=== PATIENT | male | born 2000 | race Caucasian/White ===

== ENCOUNTER 2021-09-28 23:05 | Emergency (ER) | payer SELFPAY ==
--- NOTE | 2021-09-29 00:22 | ER ---
Nurse's Notes [facility] Name: Fili Padilla Age: 21 yrs Sex: Male : 2000 Arrival Date: 09/28/2021 Time: 23:10 Bed 19 Private MD: Diagnosis: Low back pain;Abrasion of left upper arm Presentation: 09/29 00:06 Chief complaint: Patient states: "About a month ago I had an infection on my arm and vc1 pretty sure it was staph and I never took antibiotics for it, now over the last month I keep getting infections everywhere, my stomach hurts, my kidneys hurt and now my throat hurts. I am afraid the infection spread to my blood and that's why I keep getting sick.". Coronavirus screen: Vaccine status: Patient reports being unvaccinated. muscle pain, sore throat, Client presents with at least one sign or symptom that may indicate coronavirus-19. Standard/surgical mask placed on the client. Provider contacted for isolation considerations. Ebola Screen: No symptoms or risks identified at this time. Initial Sepsis Screen: Does the patient meet any 2 criteria? No. Patient's initial sepsis screen is negative. Does the patient have a suspected source of infection? No. Patient's initial sepsis screen is negative. Risk Assessment: Do you want to hurt yourself or someone else? Patient reports no desire to harm self or others. Onset of symptoms is unknown. 00:06 Method Of Arrival: Ambulatory vc1 00:06 Acuity: SHRUTHI 3 vc1 Historical: - Allergies: 00:10 No Known Allergies; vc1 - Home Meds: 00:10 None [Active]; vc1 - PMHx: 00:10 None; vc1 - PSHx: 00:10 None; vc1 - Immunization history:: Adult Immunizations unknown, Client reports having NOT received the Covid vaccine. - Social history:: Smoking status: Patient/guardian denies using tobacco, Stopped _ months ago 1. Screenin:14 Abuse screen: Denies threats or abuse. Nutritional screening: No deficits noted. fu Tuberculosis screening: No symptoms or risk factors identified. Fall Risk None identified. Assessment: 00:15 General: Appears in no apparent distress. Behavior is calm, cooperative, appropriate fu for age. Pain: Complains of pain in lower back pain Pain does not radiate. Pain currently is 3 out of 10 on a pain scale. Neuro: Level of Consciousness is awake, alert, obeys commands, Oriented to person, place, time, situation, Moves all extremities. Gait is steady, Speech is normal, Facial symmetry appears normal. Respiratory: Respiratory effort is even, unlabored, Respiratory pattern is regular. 00:20 Derm: abrasion to left arm noted. fu Vital Signs: 00:06 BP 135 / 77; Pulse 95; Resp 16; Temp 98.4(O); Pulse Ox 99% on R/A; Weight 51.71 kg; vc1 Height 5 ft. 4 in. (162.56 cm); Pain 3/10; 00:06 Body Mass Index 19.57 (51.71 kg, 162.56 cm) vc1 ED Course: 09/28 23:10 Patient arrived in ED. am2 23:28 Griffin Thomas MD is Attending Physician. virgilio 09/29 00:02 Vasquez Barros, RN is Primary Nurse. fu 00:10 Triage completed. vc1 00:10 Arm band placed on right wrist. vc1 00:50 Patient has correct armband on for positive identification. Call light in reach. Pulse fu ox on. NIBP on. 01:09 No provider procedures requiring assistance completed. Patient did not have IV access fu during this emergency room visit. Administered Medications: No medications were administered Medication: 00:45 VIS not applicable for this client. fu Outcome: 00:22 Discharge ordered by . virgilio 01:09 Discharged to home ambulatory. fu 01:09 Condition: unchanged 01:09 Discharge instructions given to patient, Instructed on discharge instructions, follow up and referral plans. Demonstrated understanding of instructions, Prescriptions given X 0 01:10 Patient left the ED. fu Signatures: Griffin Thomas MD MD cha Moreno, Amanda am2 Vasquez Barros, KIRBY ORR Yanely Curran RN RN vc1
--- NOTE | 2021-09-29 00:22 | EDPHYS ---
Physician Documentation [facility] Name: Fili Padilla Age: 21 yrs Sex: Male : 2000 Arrival Date: 09/28/2021 Time: 23:10 Bed 19 Private MD: ED Physician Griffin Thomas HPI: 09/29 00:18 This 21 yrs old Male presents to ER via Ambulatory with complaints of Skin virgilio Problem, Back Pain. 00:18 The patient presents with pain that is acute, with no known mechanism of injury. The virgilio symptoms are located in the left low back and right low back. Onset: The symptoms/episode began/occurred 2 day(s) ago. Historical: - Allergies: 00:10 No Known Allergies; vc1 - Home Meds: 00:10 None [Active]; vc1 - PMHx: 00:10 None; vc1 - PSHx: 00:10 None; vc1 - Immunization history:: Adult Immunizations unknown, Client reports having NOT received the Covid vaccine. - Social history:: Smoking status: Patient/guardian denies using tobacco, Stopped _ months ago 1. ROS: 00:19 Constitutional: Negative for fever, chills, and weight loss, Eyes: Negative for injury, virgilio pain, redness, and discharge, ENT: Negative for injury, pain, and discharge, Neck: Negative for injury, pain, and swelling, Cardiovascular: Negative for chest pain, palpitations, and edema, Respiratory: Negative for shortness of breath, cough, wheezing, and pleuritic chest pain, Abdomen/GI: Negative for abdominal pain, nausea, vomiting, diarrhea, and constipation, Back: Negative for injury and pain, : Negative for injury, bleeding, discharge, and swelling, MS/Extremity: Negative for injury and deformity, Neuro: Negative for headache, weakness, numbness, tingling, and seizure, Psych: Negative for depression, anxiety, suicide ideation, homicidal ideation, and hallucinations, Allergy/Immunology: Negative for hives, rash, and allergies, Endocrine: Negative for neck swelling, polydipsia, polyuria, polyphagia, and marked weight changes, Hematologic/Lymphatic: Negative for swollen nodes, abnormal bleeding, and unusual bruising. 00:19 Skin: Positive for abrasion(s). Exam: 00:19 Constitutional: This is a well developed, well nourished patient who is awake, alert, virgilio and in no acute distress. Head/Face: Normocephalic, atraumatic. Eyes: Pupils equal round and reactive to light, extra-ocular motions intact. Lids and lashes normal. Conjunctiva and sclera are non-icteric and not injected. Cornea within normal limits. Periorbital areas with no swelling, redness, or edema. ENT: Nares patent. No nasal discharge, no septal abnormalities noted. Tympanic membranes are normal and external auditory canals are clear. Oropharynx with no redness, swelling, or masses, exudates, or evidence of obstruction, uvula midline. Mucous membranes moist. Neck: Trachea midline, no thyromegaly or masses palpated, and no cervical lymphadenopathy. Supple, full range of motion without nuchal rigidity, or vertebral point tenderness. No Meningismus. Chest/axilla: Normal chest wall appearance and motion. Nontender with no deformity. No lesions are appreciated. Cardiovascular: Regular rate and rhythm with a normal S1 and S2. No gallops, murmurs, or rubs. Normal PMI, no JVD. No pulse deficits. Respiratory: Lungs have equal breath sounds bilaterally, clear to auscultation and percussion. No rales, rhonchi or wheezes noted. No increased work of breathing, no retractions or nasal flaring. Abdomen/GI: Soft, non-tender, with normal bowel sounds. No distension or tympany. No guarding or rebound. No evidence of tenderness throughout. Back: No spinal tenderness. No costovertebral tenderness. Full range of motion. Male : Normal genitalia with no discharge or lesions. Skin: Warm, dry with normal turgor. Normal color with no rashes, no lesions, and no evidence of cellulitis. MS/ Extremity: Pulses equal, no cyanosis. Neurovascular intact. Full, normal range of motion. Neuro: Awake and alert, GCS 15, oriented to person, place, time, and situation. Cranial nerves II-XII grossly intact. Motor strength 5/5 in all extremities. Sensory grossly intact. Cerebellar exam normal. Normal gait. Psych: Awake, alert, with orientation to person, place and time. Behavior, mood, and affect are within normal limits. Vital Signs: 00:06 BP 135 / 77; Pulse 95; Resp 16; Temp 98.4(O); Pulse Ox 99% on R/A; Weight 51.71 kg; vc1 Height 5 ft. 4 in. (162.56 cm); Pain 3/10; 00:06 Body Mass Index 19.57 (51.71 kg, 162.56 cm) vc1 MDM: 09/28 23:28 Patient medically screened. virgilio 09/29 00:19 Differential diagnosis: chronic back pain, Fatigue sprain, Ureterolithiasis. Data ivrgilio reviewed: vital signs, nurses notes, lab test result(s). Data interpreted: phototypesetting equipment monitor: rate is 95 beats/min, rhythm is regular, Pulse oximetry: on room air is 99 %. Counseling: I had a detailed discussion with the patient and/or guardian regarding: the historical points, exam findings, and any diagnostic results supporting the discharge/admit diagnosis, lab results, radiology results. 09/29 00:57 Order name: Urine Dipstick-Ancillary EDMS 09/29 00:23 Order name: Urine Dipstick-Ancillary (obtain specimen); Complete Time: 01:01 virgilio Administered Medications: No medications were administered Disposition Summary: 09/29/21 00:22 Discharge Ordered Location: Home [facility] Problem: new virgilio Symptoms: have improved virgilio Condition: Stable virgilio Diagnosis - Low back pain virgilio - Abrasion of left upper arm virgilio Followup: virgilio - With: Private Physician - When: 2 - 3 days - Reason: Recheck today's complaints, Continuance of care, Re-evaluation by your physician Discharge Instructions: - Discharge Summary Sheet virgilio - Acute Back Pain, Adult virgilio - Musculoskeletal Pain virgilio Forms: - Medication Reconciliation Form virgilio - Thank You Letter virgilio - Antibiotic Education ivrgilio - Prescription Opioid Use virgilio Signatures: Griffin Thomas MD MD cha Calcote, Vanessa, RN RN vc1
[2021-09-29 00:57] LABS: Urine Blood Negative (Negative); Urine Glucose Negative (Negative); Urine Protein Negative (Negative); Urine Specific Gravity >=1.030 (1.005-1.030); Urine pH 5.5 (5.0-7.0)
[2021-09-29 01:16] VITALS: BP 135/77; TEMP 98.4; O2SAT 99
== END 2021-09-29 01:10 | disposition home or self-care (01) ==
LOC: ER 23:05
DX: M54.50 Low back pain, unspecified (principal); S40.812A Abrasion of left upper arm, initial encounter
CPT/HCPCS: 81003; 99283

== ENCOUNTER 2021-10-16 18:01 | Emergency (ER) | payer SELFPAY ==
--- NOTE | 2021-10-16 20:47 | RAD REPORT ---
EXAM DESCRIPTION: US - Abdomen Exam Limited - 10/16/2021 8:19 pm CLINICAL HISTORY: RUQ abdomen pain COMPARISON: No comparisons FINDINGS: The gallbladder demonstrates no gallstones. No pericholecystic fluid or gallbladder wall t hickening. The common bile duct is normal measuring 2 mm. The liver demonstrates no findings of intrahepatic biliary dilatation. IMPRESSION: Unremarkable examination. Negative for cholelithiasis, acute cholecystitis, or biliary ductal dilatation.
[2021-10-16] MEDS ORDERED: NA CHLORIDE 0.9% 1,000 ML ONE (21:01)
[2021-10-16] MEDS ORDERED: ONDANSETRON 4 MG/2 ML VIAL ONE (21:01)
[2021-10-16 21:11] LABS: Urine Blood Trace-lysed (Negative); Urine Glucose Negative (Negative); Urine Protein Negative (Negative); Urine Specific Gravity >=1.030 (1.005-1.030); Urine pH 5.5 (5.0-7.0)
[2021-10-16 21:29] LABS: Absolute Lymphocytes (CBC) 3.1 K/uL (0.7-4.9); Hematocrit 45.5 % (39.6-49.0); Lymphocytes % 39.2 % (15.3-44.8); MCV 88.2 fL (80-100); MPV 8.2 fL (7.6-11.3); RBC Red Blood Cell Count 5.15 M/uL (4.33-5.43)
[2021-10-16 21:31] LABS: Urine Bacteria <20 /HPF (<20); Urine RBC <5 /HPF (None Seen)
[2021-10-16 21:51] LABS: Albumin 4.5 g/dL (3.4-5.0); Bilirubin Total 0.4 mg/dL (0.2-1.0); Potassium 3.8 mmol/L (3.5-5.1); Protein, Total 8.2 g/dL (6.4-8.2)
--- NOTE | 2021-10-16 22:04 | EDPHYS ---
Physician Documentation [facility] Name: Fili Padilla Age: 21 yrs Sex: Male : 2000 Arrival Date: 10/16/2021 Time: 18:01 Bed 14 Private MD: ED Physician Bernard Martin HPI: 10/16 19:50 This 21 yrs old Male presents to ER via Ambulatory with complaints of Abdominal Pain. cp 19:50 The patient presents with abdominal pain in the epigastric area. cp 19:50 Onset: The symptoms/episode began/occurred 2 month(s) ago. cp 19:50 The patient presents to the emergency department with vomiting, 1 episode today, cp abdominal pain, of the epigastric area, described as achy. Possible causes: unknown. The symptoms do not radiate. Associated signs and symptoms: Pertinent negatives: anorexia, constipation, diarrhea, fever, GI bleeding. Historical: - Allergies: 18:40 No Known Allergies; hb - PMHx: 18:40 None; hb - PSHx: 18:40 None; hb - Immunization history:: Adult Immunizations up to date. - Social history:: Smoking status: Patient denies any tobacco usage or history of. ROS: 20:00 Constitutional: Negative for body aches, chills, fever, poor PO intake. cp 20:00 Eyes: Negative for injury, pain, redness, and discharge. cp 20:00 ENT: Negative for drainage from ear(s), ear pain, sore throat, difficulty swallowing, difficulty handling secretions. 20:00 Cardiovascular: Negative for chest pain, edema, palpitations. 20:00 Respiratory: Negative for cough, shortness of breath, wheezing. 20:00 Abdomen/GI: Positive for abdominal pain, Negative for vomiting, diarrhea, constipation. 20:00 Back: Negative for pain at rest, pain with movement. 20:00 : Negative for urinary symptoms. 20:00 Neuro: Negative for altered mental status, headache, weakness. 20:00 All other systems are negative. Exam: 20:05 Constitutional: The patient appears in no acute distress, alert, awake, comfortable, cp non-toxic, well developed, well nourished. 20:05 Head/Face: Normocephalic, atraumatic. cp 20:05 Eyes: Periorbital structures: appear normal, Conjunctiva: normal, no exudate, no injection, Sclera: no appreciated abnormality, Lids and lashes: appear normal, bilaterally. 20:05 ENT: External ear(s): are unremarkable, Nose: is normal, Mouth: Lips: moist, Oral mucosa: moist, Posterior pharynx: Airway: no evidence of obstruction, patent. 20:05 Chest/axilla: Inspection: normal, Palpation: is normal, no crepitus, no tenderness. 20:05 Cardiovascular: Rate: normal, Rhythm: regular. 20:05 Respiratory: the patient does not display signs of respiratory distress, Respirations: normal, no use of accessory muscles, no retractions, labored breathing, is not present, Breath sounds: are clear throughout, no decreased breath sounds, no stridor, no wheezing. 20:05 Abdomen/GI: Inspection: abdomen appears normal, Bowel sounds: active, all quadrants, Palpation: soft, in all quadrants, mild abdominal tenderness, in the epigastric area, rebound tenderness, is not appreciated, voluntary guarding, is not appreciated, involuntary guarding, is not appreciated. 20:05 Back: CVA tenderness, is absent. 20:05 Skin: no rash present. 20:05 Neuro: Orientation: to person, place \T\ time. Mentation: is normal, Motor: moves all fours, strength is normal, Sensation: is normal, Gait: is steady, at a normal pace, without difficulty. Vital Signs: 18:36 BP 153 / 92; Pulse 108; Resp 16; Temp 98.9; Pulse Ox 100% on R/A; Weight 52.16 kg; hb Height 5 ft. 4 in. (162.56 cm); Pain 3/10; 20:57 BP 113 / 83; Pulse 94; Resp 18; Pulse Ox 100% on R/A; Pain 6/10; ld1 21:38 BP 115 / 86; Pulse 89; Resp 18; Pulse Ox 100% on R/A; ld1 18:36 Body Mass Index 19.74 (52.16 kg, 162.56 cm) hb MDM: 20:00 Differential diagnosis: gastritis, cholecystitis, pancreatitis, appendicitis, cp gastroenteritis, gastroesophageal reflux disease, GI Bleed. 20:36 Patient medically screened. cp 22:00 Data reviewed: vital signs, nurses notes, lab test result(s), radiologic studies, cp ultrasound. 22:00 Counseling: I had a detailed discussion with the patient and/or guardian regarding: the cp historical points, exam findings, and any diagnostic results supporting the discharge/admit diagnosis, lab results, radiology results, the need for outpatient follow up, a family practitioner, to return to the emergency department if symptoms worsen or persist or if there are any questions or concerns that arise at home. Response to treatment: the patient's symptoms have mildly improved after treatment, and as a result, I will discharge patient. Special discussion: Based on the patient's Hx, exam, and Dx evaluation, there is no indication for emergent surgery or inpatient Tx. It is understood by the patient/guardian that if the Sx's persist or worsen they need to return immediately for re-evaluation. 10/16 19:48 Order name: CBC with Diff; Complete Time: 21:59 cp 10/16 19:48 Order name: CMP; Complete Time: 21:59 cp 10/16 21:59 Interpretation: Normal except: AST 10; GLOB 3.7. cp 10/16 19:48 Order name: Lipase; Complete Time: 21:59 cp 10/16 19:48 Order name: Urine Microscopic Only; Complete Time: 21:59 cp 10/16 19:48 Order name: US Abdomen Limited; Complete Time: 21:59 cp 10/16 21:11 Order name: Urine Dipstick-Ancillary; Complete Time: 21:59 EDMS 10/16 19:48 Order name: IV Saline Lock; Complete Time: 21:00 cp 10/16 19:48 Order name: Labs collected and sent; Complete Time: 21:32 cp 10/16 19:48 Order name: Urine Dipstick-Ancillary (obtain specimen); Complete Time: 21:31 cp Administered Medications: 20:59 Drug: NS 0.9% 1000 ml Route: IV; Rate: 1 bolus; Site: right antecubital; ld1 22:18 Follow up: Response: No adverse reaction eh3 21:00 Drug: Zofran (Ondansetron) 4 mg Route: IVP; Site: right antecubital; ld1 22:18 Follow up: Response: No adverse reaction eh3 Disposition: 23:44 Co-signature as Attending Physician, Bernard Martin MD. rn Disposition Summary: 10/16/21 22:03 Discharge Ordered Location: Home cp Problem: new cp Symptoms: have improved cp Condition: Stable cp Diagnosis - Epigastric pain cp Followup: cp - With: Private Physician - When: 2 - 3 days - Reason: Recheck today's complaints Discharge Instructions: - Discharge Summary Sheet cp - Gastritis, Adult cp - Gastroesophageal Reflux Disease, Adult cp - Peptic Ulcer cp Forms: - Medication Reconciliation Form cp - Thank You Letter cp - Antibiotic Education cp - Prescription Opioid Use cp Prescriptions: - Protonix 40 mg Oral Tablet - take 1 tablet by ORAL route once daily; 30 tablet; Refills: 0, Product cp Selection Permitted - Zofran 4 mg Oral Tablet - take 1 tablet by ORAL route every 12 hours As needed; 20 tablet; Refills: 0, cp Product Selection Permitted Signatures: Dispatcher [employer] EDMS Bernard Martin MD MD rn Page, Corey, PA PA cp She Romo RN RN Lissette Stevens RN RN ld1 Jalyn Engle 3 Corrections: (The following items were deleted from the chart) 20:52 20:38 This 21 yrs old Male presents to ER via Ambulatory with complaints of Abdominal cp Pain. cp 21:59 21:59 Normal except: AST 10. cp cp
--- NOTE | 2021-10-16 22:04 | ER ---
Nurse's Notes [facility] Name: Fili Padilla Age: 21 yrs Sex: Male : 2000 Arrival Date: 10/16/2021 Time: 18:01 Bed 14 Private MD: Diagnosis: Epigastric pain Presentation: 10/16 18:36 Chief complaint: Intermittent upper abdominal pain x 2 months, pain became severe and hb mostly in the LUQ 3 days ago. Vomited once today. Coronavirus screen: At this time, the client does not indicate any symptoms associated with coronavirus-19. Ebola Screen: No symptoms or risks identified at this time. Initial Sepsis Screen: Does the patient meet any 2 criteria? No. Patient's initial sepsis screen is negative. Does the patient have a suspected source of infection? No. Patient's initial sepsis screen is negative. Risk Assessment: Do you want to hurt yourself or someone else? Patient reports no desire to harm self or others. Onset of symptoms was October 16, 2021. 18:36 Method Of Arrival: Ambulatory hb 18:36 Acuity: SHRUTHI 3 hb Historical: - Allergies: 18:40 No Known Allergies; hb - PMHx: 18:40 None; hb - PSHx: 18:40 None; hb - Immunization history:: Adult Immunizations up to date. - Social history:: Smoking status: Patient denies any tobacco usage or history of. Screenin:57 Abuse screen: Denies threats or abuse. Denies injuries from another. Nutritional ld1 screening: No deficits noted. Tuberculosis screening: No symptoms or risk factors identified. Fall Risk None identified. Assessment: 20:57 General: Appears in no apparent distress. comfortable, Behavior is calm, cooperative, ld1 appropriate for age. Pain: Complains of pain in abdomen Pain does not radiate. Pain currently is 6 out of 10 on a pain scale. Quality of pain is described as throbbing. Neuro: Level of Consciousness is awake, alert, obeys commands, Oriented to person, place, time, situation, Appropriate for age. Cardiovascular: Capillary refill < 3 seconds Patient's skin is warm and dry. Respiratory: Airway is patent Respiratory effort is even, unlabored. GI: Abdomen is flat, non-distended, Reports lower abdominal pain, upper abdominal pain. : No signs and/or symptoms were reported regarding the genitourinary system. EENT: No signs and/or symptoms were reported regarding the EENT system. Derm: No signs and/or symptoms reported regarding the dermatologic system. Musculoskeletal: No signs and/or symptoms reported regarding the musculoskeletal system. Vital Signs: 18:36 BP 153 / 92; Pulse 108; Resp 16; Temp 98.9; Pulse Ox 100% on R/A; Weight 52.16 kg; hb Height 5 ft. 4 in. (162.56 cm); Pain 3/10; 20:57 BP 113 / 83; Pulse 94; Resp 18; Pulse Ox 100% on R/A; Pain 6/10; ld1 21:38 BP 115 / 86; Pulse 89; Resp 18; Pulse Ox 100% on R/A; ld1 18:36 Body Mass Index 19.74 (52.16 kg, 162.56 cm) hb ED Course: 18:01 Patient arrived in ED. as 18:32 Griffin Shaver PA is PHCP. cp 18:32 Bernard Martin MD is Attending Physician. cp 18:39 Triage completed. hb 18:40 Arm band placed on. hb 20:21 US Abdomen Limited In Process Unspecified. EDMS 20:52 Lissette Stevens, KIRBY is Primary Nurse. ld1 20:57 Patient has correct armband on for positive identification. Placed in gown. Bed in low ld1 position. Call light in reach. Side rails up X2. spray drier operator helper on. Pulse ox on. NIBP on. Door closed. Noise minimized. Warm blanket given. 20:57 No provider procedures requiring assistance completed. ld1 21:00 Inserted saline lock: 20 gauge in right antecubital area, using aseptic technique. ld1 Blood collected. 22:23 IV discontinued, intact, bleeding controlled, No redness/swelling at site. Pressure eh3 dressing applied. Administered Medications: 20:59 Drug: NS 0.9% 1000 ml Route: IV; Rate: 1 bolus; Site: right antecubital; ld1 22:18 Follow up: Response: No adverse reaction eh3 21:00 Drug: Zofran (Ondansetron) 4 mg Route: IVP; Site: right antecubital; ld1 22:18 Follow up: Response: No adverse reaction eh3 Medication: 20:57 VIS not applicable for this client. ld1 Outcome: 22:03 Discharge ordered by . cp 22:23 Discharged to home ambulatory. eh3 22:23 Condition: stable 22:23 Discharge instructions given to patient, Instructed on discharge instructions, follow up and referral plans. medication usage, Demonstrated understanding of instructions, follow-up care, medications. 22:23 Patient left the ED. eh3 Signatures: Dispatcher [employer] EDMS Chacha Kim Corey, PA PA cp Baxter, Heather, RN RN Lissette Stevens RN RN ld1 Jalyn Engle eh3
[2021-10-16 22:29] VITALS: TEMP 98.9; O2SAT 100
[2021-10-16 22:32] VITALS: BP 115/86
== END 2021-10-16 22:23 | disposition home or self-care (01) ==
LOC: ER 18:01
DX: R10.13 Epigastric pain (principal)
CPT/HCPCS: 36415; 76705; 80053; 81003; 81015; 83690; 85025; J2405; J7030

== ENCOUNTER 2023-02-05 19:56 | Emergency (ER) | payer SELFPAY ==
--- OUTSIDE RECORDS SUMMARY | 2023-02-05 20:00 | XMS REPORT | Continuity of Care Document ---
:2000 Author Organization [facility] t Address [address] [facility] [address] [place] [address] Care Team Providers Name Role Phone Pcp, Patient Does Not Have A Primary Care Physician [phone] ANNETTE JEFFREY Attending Clinician Unavailable Annette Jeffrey DO Attending Clinician [place] BENAVIDES Attending Clinician Unavailable Ok Sanchez Attending Clinician SENTHIL CONTI Attending Clinician Unavailable Senthil Conti DO Attending Clinician Stewart Attending Clinician Unavailable DR JHON RASCON Attending Clinician Unavailable BON DONALDSON Attending Clinician Unavailable Bon Gibbs Attending Clinician MILAGRO MIRANDA Attending Clinician Unavailable Milagro Miranda MD Attending Clinician Marcos EGAN Attending Clinician Unavailable Marcos Garcia Attending Clinician DEVAN GREENE Attending Clinician Unavailable ELI ALANIZ Attending Clinician Unavailable Stewart Admitting Clinician Unavailable DR JHON RASCON Admitting Clinician Unavailable BON DONALDSON Admitting Clinician Unavailable MILAGRO MIRANDA Admitting Clinician Unavailable Payers Payer Name Policy Type Policy Number Effective Date Expiration Date Ari guerra 1000 [id number] 1959 00:00:00 Problems Condition Condition Condition Status Onset Resolution Last Treating Co mments Source Name Details Category Date Date Treatment Clinician Date Generalize Generalize Disease Active [facility] abdominal abdominal pain pain Allergies, Adverse Reactions, Alerts Allergy Allergy Status Severity Reaction(s) Onset Inactive Treating Comm ents Source Name Type Date Date Clinician No Known DA Active [facility] NO KNOWN Drug Active [facility] Social History Social Habit Start Date Stop Date Quantity Comments Source Sexual orientation [facility] History of tobacco Current smoker [facility] use History of Social 2023-02-01 2023-02-01 [facility] function 00:00:00 00:00:00 Exposure to 2022-06-22 2022-07-02 Not sure [facility]-CoV-2 (event) 00:00:00 12:01:00 [facility] Tobacco use and 2021-09-10 2021-09-10 Smokeless Ralph Benito alth exposure 00:00:00 00:00:00 tobacco non-user Alcohol intake 2021-09-10 2021-09-10 Ex-drinker Ralph Mcintosh lt 00:00:00 00:00:00 (finding) Sex Ass[birth year] At [birth year] Ralph Benito alth 00:00:00 00:00:00 Smoking Status Start Date Stop Date Source Tobacco smoking [facility] [place] xa consumption unknown Medical Bran ch Ex-smoker 2021-09-10 00:00:00 2021-09-10 [facility] 00[facility] Medications Ordered Filled Start Stop Current Ordering Indication Dosage Frequency Signature Comments Components Source Medication Medication Date Date Medication? Clinician (SIG) Name Name dexamethaso 2022- No 10mg 10 mg, Uni vers ne 07-02 Oral, ity of (DECADRON 19:15: 18:32 [place]CE[place] PHOSPHATE[place] 00 :00 dose, On Medic al injection 07/02/22 Bran ch 10 mg at 1415, Routine penicillin 2022- No 1.210 1.2 Unive rs g 07-02 Million ity of benzathine 18:15: 18:32 [place] (BICILLIN 00 :00 Intramuscu Medi francisco j L-A) lar, ONCE, Branch injection 1 dose, On 1.2 Million e 07/02/22 Units at 1315, AMARI
Re ason for Anti-Infec tive: Empiric Therapy for Suspected Infection< br>Empiric Therapy Site: HEENT
D uration of therapy: 72 hours cefTRIAXone 2022- No 500mg 500 mg, U nivers (ROCEPHIN) 04-26 Intramuscu it y of injection 05:00: 04:03 lar, ONCE, [place] 500 mg 00 :00 1 dose, On Medical [place] Branch 04/25/22 at 2300, AMARI
Re ason for Anti-Infec tive: Empiric Therapy for Suspected Infection< br>Empiric Therapy Site: Pelvic
Duration of therapy: 72 hours azithromyci 2022- No 1000mg 1,000 mg, Univers n 04-26 Oral, ity of (ZITHROMAX) 04:00: 04:01 [place] tablet [place] :[place] dose, On Medical 1,000 mg De[place] Branch 04/25/22 at 2200, AMARI
Re ason for Anti-Infec tive: Documented Infection< br>Documen campos Infection Site: Urine
D uration of Therapy: 7 days NaCl 0.9% 2021- No 1000mL at 999 Uni vers (NS) bolus 10-07 mL/hr, ity of infusion 15:00: 16:20 1,000 mL, Jerel as 1,000 mL 00 :00 IV Medical Infusion, Branch ONCE, 1 dose, On [place] 10/07/21 at 1000, AMARI ketorolac 2021-2021- No 30mg 30 mg, Unive rs (TORADOL) 10-07 Slow IV ity of injection 14:15: 14:48 Push, [place] 30 mg 00 :00 ONCE, 1 Medical dose, On Branch [place] 10/07/21 at 0915, AMARI amoxicillin 2021-0 2021- No 500mg 500 mg, U nivers (TRIMOX) 09-28 Oral, ity of capsule 500 02:45: 02:50 [place]CE[place] 1 [place] mg 00 :00 dose, On Medical [place] Branch 09/27/21 at 2145, AMARI
Re ason for Anti-Infec tive: Documented Infection< br>Documen campos Infection Site: HEENT
D uration of Therapy: Other (see Comments) methylPREDN 2022-0 Yes [id number] Take by Univers ISolone 4 6-30 mouth ity of mg tablets 00:00: SEE-INSTRU [place] 00 CTIONS. Medical follow Branch package directions amoxicillin 2021-0 Yes [id number] 500mg Take 1 Univers 500 mg 6-30 capsule by ity of capsule 00:00: mouth 3 (three) Medical times Branch daily. methylPREDN 2022-0 Yes [id number] Take by Univers ISolone 4 6-30 mouth ity of mg tablets 00:00: SEE-INSTRU [place] 00 CTIONS. Medical follow Branch package directions methylPREDN 2022-0 Yes [id number] Take by Univers ISolone 4 6-30 mouth ity of mg tablets 00:00: SEE-INSTRU [place] 00 CTIONS. Medical follow Branch package directions amoxicillin 2021-0 Yes [id number] 500mg Take 1 Univers 500 mg 6-30 capsule by ity of capsule 00:00: mouth 3 (three) Medical times Branch daily. methylPREDN 2022-0 Yes [id number] Take by Univers ISolone 4 6-30 mouth ity of mg tablets 00:00: SEE-INSTRU [place] 00 CTIONS. Medical follow Branch package directions methylPREDN 2022-0 Yes [id number] Take by Univers ISolone 4 6-30 mouth ity of mg tablets 00:00: SEE-INSTRU [place] 00 CTIONS. Medical follow Branch package directions amoxicillin 2022-0 Yes [id number] 500mg Take 1 Univers 500 mg 6-30 capsule by ity of capsule 00:00: mouth 3 (three) Medical times Branch daily. methylPREDN 2022-0 Yes [id number] Take by Univers ISolone 4 6-30 mouth ity of mg tablets 00:00: SEE-INSTRU [place] 00 CTIONS. Medical follow Branch package directions methylPREDN 2022-0 Yes [id number] Take by Univers ISolone 4 6-30 mouth ity of mg tablets 00:00: SEE-INSTRU [place] 00 CTIONS. Medical follow Branch package directions amoxicillin 2022-0 Yes [id number] 500mg Take 1 Univers 500 mg 6-30 capsule by ity of capsule 00:00: mouth 3 (three) Medical times Branch daily. methylPREDN 2022-0 Yes [id number] Take by Univers ISolone 4 6-30 mouth ity of mg tablets 00:00: SEE-INSTRU [place] 00 CTIONS. Medical follow Branch package directions methylPREDN 2022-0 Yes [id number] Take by Univers ISolone 4 6-30 mouth ity of mg tablets 00:00: SEE-INSTRU [place] 00 CTIONS. Medical follow Branch package directions amoxicillin 2-0 Yes [id number] 500mg Take 1 Univers 500 mg 6-30 capsule by ity of capsule 00:00: mouth 3 (three) Medical times Branch daily. methylPREDN 2022-0 Yes [id number] Take by Univers ISolone 4 6-30 mouth ity of mg tablets 00:00: SEE-INSTRU [place] 00 CTIONS. Medical follow Branch package directions methylPREDN 2022-0 Yes [id number] Take by Univers ISolone 4 6-30 mouth ity of mg tablets 00:00: SEE-INSTRU [place] 00 CTIONS. Medical follow Branch package directions amoxicillin 2-0 Yes [id number] 500mg Take 1 Univers 500 mg 6-30 capsule by ity of capsule 00:00: mouth 3 (three) Medical times Branch daily. methylPREDN 2022-0 Yes [id number] Take by Univers ISolone 4 6-30 mouth ity of mg tablets 00:00: SEE-INSTRU [place] 00 CTIONS. Medical follow Branch package directions methylPREDN 2022-0 Yes [id number] Take by Univers ISolone 4 6-30 mouth ity of mg tablets 00:00: SEE-INSTRU [place] 00 CTIONS. Medical follow Branch package directions amoxicillin 2-0 Yes [id number] 500mg Take 1 Univers 500 mg 6-30 capsule by ity of capsule 00:00: mouth 3 (three) Medical times Branch daily. methylPREDN 2022-0 Yes [id number] Take by Univers ISolone 4 6-30 mouth ity of mg tablets 00:00: SEE-INSTRU [place] 00 CTIONS. Medical follow Branch package directions famotidine 20mg 20 mg, Univ ers (PEPCID 09-22 Slow IV ity of (PF)) 18:45: 18:05 Push, [place] injection 00 :00 ONCE, 1 Medical 20 mg dose, On Branch 09/22/21 at 1345, AMARI famotidine Yes [id number] 40mg Take 1 U nivers (PEPCID) 40 6-25 tablet by ity of mg tablet 00:00: mouth [place] 00 daily. Medical Branch famotidine Yes [id number] 40mg Take 1 U nivers (PEPCID) 40 6-25 tablet by ity of mg tablet 00:00: mouth [place] 00 daily. Medical Branch famotidine 0 Yes [id number] 40mg Take 1 U nivers (PEPCID) 40 6-25 tablet by ity of mg tablet 00:00: mouth [place] 00 daily. Medical Branch famotidine Yes [id number] 40mg Take 1 U nivers (PEPCID) 40 6-25 tablet by ity of mg tablet 00:00: mouth [place] 00 daily. Medical Branch famotidine Yes [id number] 40mg Take 1 U nivers (PEPCID) 40 6-25 tablet by ity of mg tablet 00:00: mouth [place] 00 daily. Medical Branch famotidine Yes [id number] 40mg Take 1 U nivers (PEPCID) 40 6-25 tablet by ity of mg tablet 00:00: mouth [place] 00 daily. Medical Branch famotidine 0 Yes [id number] 40mg Take 1 U nivers (PEPCID) 40 6-25 tablet by ity of mg tablet 00:00: mouth [place] 00 daily. Medical Branch famotidine 0 Yes [id number] 40mg Take 1 U nivers (PEPCID) 40 6-25 tablet by ity of mg tablet 00:00: mouth [place] 00 daily. Medical Branch Immunizations Ordered Filled Date Status Comments Source Immunization Name Immunization Name TD Pres-Free 2022-09-20 Completed University o f 00:00:00 [facility] TD Pres-Free 2022-09-20 Completed University o f 00:00:00 [facility] TD Pres-Free Unknown Completed University o f [facility] Vital Signs Vital Name Observation Time Observation Value Comments Source Systolic blood 2022-10-04 09:10:00 150 mm[Hg] Univer sity of pressure [facility] [place] [facility] Diastolic blood 2022-10-04 09:10:00 91 mm[Hg] Unive rsity of pressure [facility] Heart rate 2022-10-04 09:10:00 73 /min Universi ty [facility] [place] [facility] Body temperature 2022-10-04 09:10:00 36.89 Cathy Univ ersity [facility] [place] [facility] Respiratory rate 2022-10-04 09:10:00 18 /min Univ ersity [facility] [place] [facility] Body height 2022-10-04 09:10:00 162.6 cm Universi ty [facility] [place] [facility] Body weight 2022-10-04 09:10:00 58.832 kg [facility] [place] [facility] BMI 2022-10-04 09:10:00 22.26 kg/m2 Universi ty [facility] [place] [facility] Oxygen saturation in 2022-10-04 09:10:00 97 /min University of Arterial blood by [place] [employer] francisco j Pulse oximetry Branch Systolic blood 2022-09-20 17:42:00 120 mm[Hg] Univer sity of pressure [facility] Diastolic blood 2022-09-20 17:42:00 77 mm[Hg] Unive rsity of pressure [facility] Heart rate 2022-09-20 17:42:00 77 /min Universi ty of [place] [facility] Body temperature 2022-09-20 17:42:00 37.39 Cathy Univ ersity of [place] [facility] Respiratory rate 2022-09-20 17:42:00 20 /min Univ ersity of [place] [facility] Body height 2022-09-20 17:42:00 162.6 cm Universi ty [facility] [place] [facility] Body weight 2022-09-20 17:42:00 58.968 kg Universi ty [facility] [place] [facility] BMI 2022-09-20 17:42:00 22.31 kg/m2 Universi ty [facility] [place] [facility] Oxygen saturation in 2022-09-20 17:42:00 100 /min University of Arterial blood by [place] francisco j Pulse oximetry Branch Systolic blood 2022-07-02 18:26:04 98 mm[Hg] Univer sity of pressure [facility] [place] [facility] Diastolic blood 2022-07-02 18:26:04 80 mm[Hg] Unive rsity of pressure [facility] [place] [facility] Heart rate 2022-07-02 18:26:04 90 /min Universi ty [facility] [place] [facility] Body temperature 2022-07-02 18:26:04 37.22 Cathy Univ ersity of [place] [facility] Respiratory rate 2022-07-02 18:26:04 16 /min Univ ersity of [place] [facility] Body height 2022-07-02 17:02:00 162.6 cm Universi ty [facility] [place] [facility] Body weight 2022-07-02 17:02:00 54.432 kg Universi [facility] [place] [facility] BMI 2022-07-02 17:02:00 20.60 kg/m2 [facility] [place] [facility] Oxygen saturation in 2022-07-02 17:02:00 100 /min University of Arterial blood by [place] [facility] francisco j Pulse oximetry Branch Systolic blood 2022-04-26 03:56:00 136 mm[Hg] Univer sity of pressure [facility] [place] [facility] Diastolic blood 2022-04-26 03:56:00 87 mm[Hg] Unive rsity of pressure [facility] Heart rate 2022-04-26 03:56:00 94 /min Universi ty [facility] [place] [facility] Body temperature 2022-04-26 03:56:00 37.39 Cathy Univ ersity of [place] [facility] Respiratory rate 2022-04-26 03:56:00 18 /min Univ ersity of [place] [facility] Body height 2022-04-26 03:56:00 162.6 cm Universi ty [facility] [place] [facility] Body weight 2022-04-26 03:56:00 58.968 kg Universi [facility] [place] [facility] BMI 2022-04-26 03:56:00 22.31 kg/m2 Universi [facility] [place] [facility] Oxygen saturation in 2022-04-26 03:56:00 97 /min University of Arterial blood by [place] [facility] francisco j Pulse oximetry Branch Height 2021-10-11 22:50:00 162.56 CM Weight 2021-10-11 22:50:00 51.7 KG Systolic blood 2021-10-07 16:18:00 118 mm[Hg] Univer sity of pressure [facility] [place] [facility] Diastolic blood 2021-10-07 16:18:00 77 mm[Hg] Unive rsity of pressure [facility] [place] [facility] Heart rate 2021-10-07 16:18:00 99 /min Universi ty [facility] [place] [facility] Respiratory rate 2021-10-07 16:18:00 15 /min Univ ersity of [place] [facility] Oxygen saturation in 2021-10-07 16:18:00 98 /min University of Arterial blood by [facility] francisco j Pulse oximetry Branch Body temperature 2021-10-07 14:07:25 37.28 Cathy Univ ersity of [place] [facility] Body height 2021-10-07 13:56:00 162.6 cm Universi ty [facility] [place] [facility] Body weight 2021-10-07 13:56:00 51.71 kg [facility] [place] [facility] BMI 2021-10-07 13:56:00 19.57 kg/m2 [facility] [place] [facility] Systolic blood 2021-09-28 01:48:00 130 mm[Hg] Univer sity of pressure [facility] [place] [facility] Diastolic blood 2021-09-28 01:48:00 91 mm[Hg] Unive rsity of pressure [facility] [place] [facility] Heart rate 2021-09-28 01:48:00 107 /min Universi ty [facility] [place] [facility] Body temperature 2021-09-28 01:48:00 36.61 Cathy Univ ersity [facility] [place] [facility] Respiratory rate 2021-09-28 01:48:00 20 /min Univ ersity [facility] [place] [facility] Body height 2021-09-28 01:48:00 162.6 cm Universi ty [facility] [place] [facility] Body weight 2021-09-28 01:48:00 52.073 kg [facility]i [facility] [place] [facility] BMI 2021-09-28 01:48:00 19.71 kg/m2 [facility] [place] [facility] Oxygen saturation in 2021-09-28 01:48:00 98 /min University of Arterial blood by [facility] francisco j Pulse oximetry Branch Systolic blood 2021-09-22 17:36:00 122 mm[Hg] Univer sity of pressure [facility] [place] [facility] Diastolic blood 2021-09-22 17:36:00 97 mm[Hg] Unive rsity of pressure [facility] [place] [facility] Heart rate 2021-09-22 17:36:00 107 /min [facility] Body temperature 2021-09-22 17:36:00 36.67 [facility] Respiratory rate 2021-09-22 17:36:00 18 /[facility] Body weight 2021-09-22 17:36:00 51.71 kg [facility] Oxygen saturation in 2021-09-22 17:36:00 99 /min [facility] blood by [facility] Pulse oximetry Branch Procedures Procedure Date / Time Performing Clinician Source Performed ASSIGNMENT OF BENEFITS 2023-01-03 19:19:16 Doctor Unassigned, No [facility] CONSENT/REFUSAL FOR 2023-01-03 19:04:17 Doctor Unassigned, No Un iversity [facility] DIAGNOSIS AND TREATMENT Name Medical Branch CONSENT/REFUSAL FOR 2022-10-04 09:05:22 [facility] Name Medical Branch ASSIGNMENT OF BENEFITS 2022-09-20 18:13:13 Doctor Unassigned, No [facility] CONSENT/REFUSAL FOR 2022-09-20 17:26:35 Doctor Unassigned, No Un iversity [facility] DIAGNOSIS AND TREATMENT Name Medical Branch ASSIGNMENT OF BENEFITS 2022-07-02 17:55:58 Doctor Unassigned, No [facility] RAPID STREP SCREEN FOR 2022-07-02 17:33:00 Senthil Conti [facility] GROUP A Medical Branch RAPID INFLUENZA A/B 2022-07-02 17:33:00 Senthil Conti [facility] COVID-19 (ID NOW RAPID 2022-07-02 17:33:00 Senthil Conti [facility] TESTING) Medical Branch CONSENT/REFUSAL FOR 2022-04-26 03:53:57 Doctor Unassigned, No [facility] Medical Branch NOTICE OF PRIVACY 2022-04-26 03:51:29 Doctor Unassigned, No [facility] PRACTICES [facility] Medical Branch TROPONIN I 2021-10-07 14:43:00 Bon Donaldson [facility] COMP. METABOLIC PANEL 2021-10-07 14:43:00 [facility] ([id number] Medical Branch CBC WITH DIFF 2021-10-07 14:43:00 Bon Donaldson [facility] XR ABDOMEN ACUTE SERIES 2021-10-07 14:31:00 [facility] 2021-10-07 14:06:00 Bon Donaldson [facility] URINE DRUG (IMMUNOASSAY) 2021-10-07 14:06:00 Bon [facility]onaldson [facility] COM[facility]HENSIVE [facility] Medical Bra nch SCREEN W/O REFLEX CONSENT/REFUSAL FOR 2021-10-07 13:49:07 Doctor Unassigned, No [facility] Name Medical [place] XR NECK SOFT TISSUE 2021-09-28 02:27:00 Milagro Miranda [facility] RAPID STREP SCREEN FOR 2021-09-28 02:04:00 Milagro Miranda [facility] GROUP A Medical [place] NOTICE OF PRIVACY 2021-09-28 01:17:23 [facility]igned, No [facility] [place] CONSENT/REFUSAL FOR 2021-09-28 01:16:44 Doctor Unassigned, No Un iversity [facility] DIAGNOSIS AND TREATMENT [facility] COMP. METABOLIC PANEL 2021-09-22 18:06:00 Marcos Egan [facility] ([id number]) Medical Branch CBC WITH DIFF 2021-09-22 18:06:[address] [facility] NOTICE OF PRIVACY 2021-09-22 17:34:11 Doctor Unassigned, No [facility] [place] CONSENT/REFUSAL FOR 2021-09-22 17:33:56 Doctor Unassigned, No Un iversity [facility] DIAGNOSIS AND TREATMENT [facility] Plan of Care Planned Activity Planned Date Details Comments Source Future Scheduled Test 2022-11-29 00:00:00 IMM Influenza [facility] Seasonal (>/= 19 yrs) [code = IMM Influenza Seasonal (>/= 19 yrs)] Future Scheduled Test 1999 00:00:00 COVID-19 Vaccine (#1) [facility] [code = COVID-19 Vaccine (#1)] Encounters Start End Encounter Admission Attending Care Care Encounter Source Date/Time Date/Time Type Type Clinicians Facility Department ID 2023-01-03 2023-01-03 Emergency X [facility] ERT [id number] Univers 14:15:00 14:37:00 ity [facility] 2023-01-03 2023-01-03 Emergency [facility] [id number] Univers 14:15:00 14:37:00 [place] [id number] i ty [facility] [id number] [facility] [id number] [address] 2022-10-04 2022-10-04 Emergency [facility] [id number] Univers 04:12:00 04:51:00 ANNETTE toussaint [facility] 2022-10-04 2022-10-04 [facility] [id number] Univers 04:12:00 04:51:00 Annette JOHN [id number] ity of [place] [id number] [facility] [id number] [address] 2022-09-20 2022-09-20 Emergency [facility] [id number] Univers 12:43:00 13:31:00 [place] toussaint [facility] 2022-09-20 2022-09-20 Emergency [facility] [id number] Univers 12:43:00 13:31:00 Ok Chapman DORA [id number] i ty of [place] [id number] [facility] [id number] [address] 2022-07-02 2022-07-02 Emergency X [facility] ERT [id number] Univers 12:03:00 13:47:00 SENTHIL breana [facility] 2022-07-02 2022-07-02 Emergency [facility] [id number] Univers 12:03:00 13:47:00 Senthil DORA [id number] i ty of [place] [id number] [facility] [id number] [address] 2022-04-25 2022-04-25 Emergency X , [facility] ERT [id number] Univers 21:57:00 22:24:00 SENTHIL toussaint [facility] 2022-04-25 2022-04-25 Emergency Singer [facility] [id number] Univers 21:57:00 22:24:00 Senthil JOHN [id number] i ty [facility] [id number] [place] [id number] 2021-10-15 2021-10-15 Outpatient L_Pena [facility] [id number] [place] 03:51:00 03:51:00 [id number] Commun i [facility] 2021-10-11 2021-10-11 Outpatient E JHON RASCON [facility] [id number] [place] 22:50:00 23:47:00 Medica [facility] 2021-10-07 2021-10-07 Emergency X MENDOZA, [facility] ERT [id number] Univers 09:05:00 12:29:00 BON toussaint [facility] 2021-10-07 2021-10-07 Emergency Mendoza, [facility] [id number] Univers 09:05:00 12:29:00 Bon JOHN [id number] i ty of [facility] 4.2.7.2.[address] [place] [id number] 2021-09-27 2021-09-27 Emergency [facility] [id number] Univers 20:50:00 21:59:00 MILAGRO toussaint [facility] 2021-09-27 2021-09-27 Emergency [facility] [id number] Univers 20:50:00 21:59:00 Milagro JOHN [id number] i ty [facility] [id number] [place] [id number] 2021-09-22 2021-09-22 Emergency X Marcos EGAN [facility] ERT [id number] Univers 12:39:00 14:49:00 ity [facility] 2021-09-22 2021-09-22 Emergency Marcos Egan [facility] [id number] [facility] 12:39:00 14:49:00 Ashley JOHN [id number] i ty AMELIA [id number] [facility] [id number] [facility] 084 [place] 2021-09-10 2021-09-10 Emergency DEVAN GREENE [facility] [id number] [place] 16:37:00 17:41:00 Health 2021-09-10 2021-09-10 Emergency [facility] [id number] [place] 13:39:52 14:36:13 Health 2021-09-08 2021-09-08 Emergency ELI ALFARO FB FB [id number] [facility] 12:07:00 15:52:00 Results Test Description Test Time Test Comments Results Result [facility] e Comments CT CHEST W/O 2021-10-11 CONTRAST *OW* 23:37:30 [facility] 2000 Sex: M Lo cation: H 31CT CHEST WITHOUT CONTRASTTECHNIQUE: Axial CT of the chest is obtained and provided in soft tissue and lung windows with coronal and sagittal reconstructions. One or more the following dose reduction techniques is utilized: Use of iterative reconstruction, automated exposure control, adjustment of the mAs and Kv for the patient's weight. DLP 227.91 mGy-cm. HISTORY: DyspneaFINDINGS:Lungs : There is no focal infiltrate, consolidation or mass lesion. No pleural effusions. Aorta/Pulmonary Arteries: Normal size.Heart: Heart size is within normal limits. No pericardial effusion.Mediastinum/ Thyroid: Residual thymus. No fullness to suggest hilar or mediastinal lymphadenopathy. No filling defects in the airways. Thyroid is unremarkable.Osseous: No aggressive osseous lesions.Chest Wall/Axillae: No acute findings. Note focal kyphotic curvature at the T11-T12 level with mild disc bulge, chronic.Upper Abdomen: Unremarkable.IMPRESSI ON:No acute intrathoracic findings within limits of noncontrast exam. Electronically signed by: Nohelia Rudolph MD 10/11/2021 11:37 PM CDT CBC WITH DIFF 2021-10-07 16:21:38 Test Item Value Reference Range Interpretation Comme nts WBC (test code = 6690-2) See_Comment [A utomated message] The system which [employer] ([employer]) nerated this result transmit campos reference range: 4.20 - 1 0.70 10*3/?L. The reference r mona was not used to interpr et this result as normal/abnor mal. RBC (test code = 789-8) See_Comment [Au tomated message] The system which ge nerated this result transmit campos reference range: 4.26 - 5 .52 10*6/?L. The reference r mona was not used to interpr et this result as normal/abnor mal. HGB (test code = 718-7) 15.3 g/dL 12.2-16.4 HCT (test code = 4544-3) 43.8 % 38.4-49.3 MCV (test code = 787-2) 87.8 fL 81.7-95.6 MCH (test code = 785-6) 30.7 pg 26.1-32.7 MCHC (test code = 786-4) 34.9 g/dL 31.2-35 RDW-SD (test code = 84005-2) 37.4 fL 38.5-51.6 L RDW-CV (test code = 788-0) 11.8 % 12.1-15.4 L PLT (test code = 777-3) See_Comment [Au tomated message] The system which [employer] ([employer]) nerated this result transmit campos reference range: 150 - 32 8 10*3/?L. The reference range was not used to interpret th is result as normal/abnormal . MPV (test code = 46757-7) 10.0 fL 9.8-13 NRBC/100 WBC (test code = See_Comment [ Automated message] The [id number]) system which [employer] ([employer]) nerated this result transmit campos reference range: 0.0 - 10 .0 /100 WBCs. The reference r mona was not used to interpr et this result as normal/abnor mal. NRBC x10^3 (test code = See_Comment [Au tomated message] The 6487983473) system which [employer] ([employer]) nerated this result transmit campos reference range: 10*3/?L. The reference range was not u sed to interpret this result as normal/abnormal . GRAN MAT (NEUT) % (test code 51.0 % = 770-8) IMM GRAN % (test code = 0.40 % 5831706401) LYMPH % (test code = 736-9) 34.6 % MONO % (test code = 5905-5) 9.1 % EOS % (test code = 713-8) 3.9 % BASO % (test code = 706-2) 1.0 % GRAN MAT x10^3(ANC) (test 4.92 10*3/uL 1.99-6.95 code = 2196293797) IMM GRAN x10^3 (test code = 0.04 10*3/uL 0-0.06 5169560354) LYMPH x10^3 (test code = 3.34 10*3/uL 1.09-3.23 H 731-0) MONO x10^3 (test code = 0.88 10*3/uL 0.36-1.02 742-7) EOS x10^3 (test code = 0.38 10*3/uL 0.06-0.53 711-2) BASO x10^3 (test code = 0.10 10*3/uL 0.01-0.09 H 704-7) Lab Interpretation (test Abnormal code = 51581-1) [facility]. METABOLIC PANEL ([id number])2021-10-07 16:10:15 Test Item Value Reference Range Interpretation Comments NA (test code = 137 mmol/L 135-145 6862150912) K (test code = 4.3 mmol/L 3.5-5 5953922839) CL (test code = 101 mmol/L 98-108 6886941132) CO2 TOTAL (test code 25 mmol/L 23-31 = 3758758873) AGAP (test code = 2-16 5647942267) BUN (test code = 12 mg/dL 7-23 4214203579) GLUCOSE (test code = 109 mg/dL 70-110 1100074068) CREATININE (test code 0.74 mg/dL 0.6-1.25 = 2435522519) TOTAL BILI (test code 0.5 mg/dL 0.1-1.1 = 7364487289) CALCIUM (test code = 9.7 mg/dL 8.6-10.6 6539415554) T PROTEIN (test code 7.6 g/dL 6.3-8.2 = 0646300911) ALBUMIN (test code = 4.8 g/dL 3.5-5 9203068963) ALK PHOS (test code = 67 U/L 34-122 2286871967) ALTv (test code = 30 U/L 5-50 1742-6) AST(SGOT) (test code 31 U/L 13-40 = 9696326642) eGFR (test code = mL/min/1.73m2 0257087065) ERICA (test code = ERICA) Association of Glomerular Filtration Rate (GFR) and Staging of Kidney Disease* + + +- +| GFR (mL/min/1.73 m2) ?| With Kidney Damage ?| ?Without Kidney Damage+ ------+ ----+ ------+| ?>90 ?| ?Stage one ?| ? Normal ?+ -+ + -+| ?60-89 ?| ?Stage two ?| ? Decreased GFR ? + + +- +| ?30-59 ?| ?Stage three ?| ? Stage three ? + + +- +| ?15-29 ?| ?Stage four ? | ? Stage four ?+ -+ + -+| ?<15 (or dialysis) ? ?| ?Stage five ? | ? Stage five ?+ -+ + -+ *Each stage assumes the associated GFR level has been in effect for at least three months. ?Stages 1 to 5, with or without kidney disease, indicate chronic kidney disease. Notes: Determination of stages one and two (with eGFR >59mL/min/1.73 m2) requires estimation of kidney damage for at least three months as defined by structural or functional abnormalities of the kidney, manifested by either:Pathological abnormalities or Markers of kidney damage (including abnormalities in the composition of the blood or urine or abnormalities in imaging tests). [facility] [id number] 16:10:15 Test Item Value Reference Interpretation Comments Range TROPONIN I (test 0.002 ng/mL See_Comment [Automated code = 2772842444) message] The system which generated this result transmitted reference range : <=0.034. The reference range was not used to interpret this result as normal/abnormal . ERICA (test code = Reference (Normal) ERICA) Range (defined by the 99th percentile reference limit): <= 0.034 ng/mL Note: Cardiac troponin begins to rise 3-4 hours after the onset of ischemia. Repeat in 4-6 hours if the sample was drawn within 3-4 hours of the onset of the symptom and found normal. Diagnosis of myocardial injury is made with acute changes in cTn concentrations with at least one serial sample above the 99th percentile upper reference limit (URL), taken together with the patient's clinical presentation. Biotin has been reported to cause a negative bias, interpret results relative to patient's use of biotin. Lab Interpretation Normal (test code = 11934-6) [facility] METABOLIC PANEL ([id number])2021-09-22 18:29:50 Test Item Value Reference Range Interpretation Comments NA (test code = 141 mmol/L 135-145 1460097753) K (test code = 4.3 mmol/L 3.5-5.0 2201969956) CL (test code = 98 mmol/L 98-108 6115060867) CO2 TOTAL (test code = 29 mmol/L 23-31 9123793372) AGAP (test code = 2-16 7768434007) BUN (test code = 19 mg/dL 7-23 2690317978) GLUCOSE (test code = 116 mg/dL 70-110 H 1247915031) CREATININE (test code = 0.91 mg/dL 0.60-1.25 9997324909) TOTAL BILI (test code = 0.7 mg/dL 0.1-1.6 0849724061) CALCIUM (test code = 10.5 mg/dL 8.6-10.6 8074245333) T PROTEIN (test code = 8.7 g/dL 6.3-8.2 H 3789110838) ALBUMIN (test code = 5.3 g/dL 3.5-5.0 H 6503270665) ALK PHOS (test code = 74 U/L 34-122 3321757563) ALTv (test code = 15 U/L 5-50 1742-6) AST(SGOT) (test code = 21 U/L 13-40 4082779497) eGFR (test code = mL/min/1.73m2 4268720454) ERICA (test code = ERICA) Association of Glomerular Filtration Rate (GFR) and Staging of Kidney Disease* + --+ --+ ------+| GFR (mL/min/1.73 m2) ?| With Kidney Damage ?| ?Without Kidney Damage+ --------+ --------+ +| ?>90 ?| ?Stage one ?| ? Normal ?+ ---+ ---+ -------+| ?60-89 ?| ?Stage two ?| ? Decreased GFR ? + --+ --+ ------+| ?30-59 ?| ?Stage three ?| ? Stage three ? + --+ --+ ------+| ?15-29 ?| ?Stage four ? | ? Stage four ?+ ---+ ---+ -------+| ?<15 (or dialysis) ? ?| ?Stage five ? | ? Stage five ?+ ---+ ---+ -------+ *Each stage assumes the associated GFR level has been in effect for at least three months. ?Stages 1 to 5, with or without kidney disease, indicate chronic kidney disease. Notes: Determination of stages one and two (with eGFR >59mL/min/1.73 m2) requires estimation of kidney damage for at least three months as defined by structural or functional abnormalities of the kidney, manifested by either:Pathological abnormalities or Markers of kidney damage (including abnormalities in the composition of the blood or urine or abnormalities in imaging tests). Lab Interpretation Abnormal (test code = 38561-3) [facility] WITH [id number] 18:16:30 Test Item Value Reference Range Interpretation Comments WBC (test code = See_Comment [Automated 6690-2) message] The sy stem which generated this result transmitted reference range : 4.20 - 10.70 10*3/?L. The reference range was not used to interpret this result as normal/abnormal . RBC (test code = See_Comment [Automated 789-8) message] The sy stem which generated this result transmitted reference range : 4.26 - 5.52 10*6/?L. The reference range was not used to interpret this result as normal/abnormal . HGB (test code = 16.9 g/dL 12.2-16.4 H 718-7) HCT (test code = 48.5 % 38.4-49.3 4544-3) MCV (test code = 88.2 fL 81.7-95.6 787-2) MCH (test code = 30.7 pg 26.1-32.7 785-6) MCHC (test code = 34.8 g/dL 31.2-35.0 786-4) RDW-SD (test code = 37.3 fL 38.5-51.6 L 92126-6) RDW-CV (test code = 11.7 % 12.1-15.4 L 788-0) PLT (test code = See_Comment H [Automated 777-3) message] The sy stem which generated this result transmitted reference range : 150 - 328 10*3/ ?L. The reference r mona was not used to interpret this result as normal/abnormal . MPV (test code = 9.7 fL 9.8-13.0 L 76129-0) NRBC/100 WBC (test See_Comment [Automat ed code = 7883251532) message] The system which generated this result transmitted reference range : 0.0 - 10.0 /100 WBCs. The refer ence range was not u sed to interpret th is result as normal/abnormal . NRBC x10^3 (test code <0.01 See_Comment [Auto mated = 4002247356) message] The s ystem which generated this result transmitted reference range : 10*3/?L. The reference range was not used to interpret this result as normal/abnormal . GRAN MAT (NEUT) % 59.3 % (test code = 770-8) IMM GRAN % (test code 0.40 % = 8791819754) LYMPH % (test code = 30.0 % 736-9) MONO % (test code = 8.7 % 5905-5) EOS % (test code = 0.9 % 713-8) BASO % (test code = 0.7 % 706-2) GRAN MAT x10^3(ANC) 6.32 10*3/uL 1.99-6.95 (test code = 8853619405) IMM GRAN x10^3 (test 0.04 10*3/uL 0.00-0.06 code = 2376535342) LYMPH x10^3 (test code 3.20 10*3/uL 1.09-3.23 = 731-0) MONO x10^3 (test code 0.93 10*3/uL 0.36-1.02 = 742-7) EOS x10^3 (test code = 0.10 10*3/uL 0.06-0.53 711-2) BASO x10^3 (test code 0.07 10*3/uL 0.01-0.09 = 704-7) Lab Interpretation Abnormal (test code = 98646-8) [facility]"
[2023-02-05 21:03] LABS: SARS-COV-2 RT PCR NEGATIVE (NEGATIVE)
--- NOTE | 2023-02-05 21:12 | EDPHYS ---
Physician Documentation [facility] Name: Fili Padilla Age: 22 yrs Sex: Male : 2000 Arrival Date: 02/05/2023 Time: 19:56 Bed IW1 Private MD: ED Physician James Castro HPI: 02/05 21:13 This 22 yrs old Male presents to ER via Ambulatory with complaints of Sore Throat, kb Dizziness. 21:13 Patient is a 22-year-old male with no medical history who presents for cough, kb congestion, sore throat, headaches, body aches, fever, chills that started 4 days ago. Denies chest pain, shortness of breath. Historical: - Allergies: 20:05 No Known Allergies; lg3 - Home Meds: 20:05 None [Active]; lg3 - PMHx: 20:05 None; lg3 - PSHx: 20:05 None; lg3 - Immunization history:: Adult Immunizations up to date, Client reports having NOT received the Covid vaccine. - Social history:: Smoking status: Reported history of juuling and/or vaping. Patient uses alcohol, occasionally. street drugs, marijuana. ROS: 21:12 Abdomen/GI: Negative for abdominal pain, nausea, vomiting, diarrhea, and constipation, kb 21:12 Constitutional: Positive for body aches, chills, fatigue, fever, malaise, 21:12 ENT: Positive for rhinorrhea, sore throat, 21:12 Respiratory: Positive for cough, 21:12 Neuro: Positive for headache, 21:12 All other systems are negative, Exam: 21:12 Constitutional: This is a well developed, well nourished patient who is awake, alert, kb and in no acute distress. Head/Face: Normocephalic, atraumatic. Cardiovascular: Regular rate Respiratory: Respirations even and unlabored. No increased work of breathing. Talking in full sentences Abdomen/GI: Soft, non-tender. No distention Skin: Warm, dry with normal turgor. Normal color. MS/ Extremity: Pulses equal, no cyanosis. Neurovascular intact. Full, normal range of motion. Neuro: Awake and alert, GCS 15, oriented to person, place, time, and situation. Moves all extremities. Normal gait. 21:12 ENT: Posterior pharynx: erythema, that is moderate, Vital Signs: 20:04 BP 125 / 86; Pulse 95; Resp 17 S; Temp 98.6(O); Pulse Ox 100% on R/A; Weight 52.16 kg lg3 (R); Height 5 ft. 4 in. (R); 20:04 Body Mass Index 19.74 (52.16 kg, 162.56 cm) lg3 MDM: 20:00 Patient medically screened. kb 21:12 Differential diagnosis: Flu, COVID, strep, URI. Data reviewed: vital signs, nurses kb notes. Test considered but Not performed: X-ray: Chest x-ray considered due to cough but lungs clear bilaterally, oxygen saturation 100% on room air, respirations even and unlabored. Counseling: I had a detailed discussion with the patient and/or guardian regarding the historical points, exam findings, and any diagnostic results supporting the discharge/admit diagnosis, lab results, the need for outpatient follow up, a family practitioner, to return to the emergency department if symptoms worsen or persist or if there are any questions or concerns that arise at home. 02/05 20:05 Order name: COVID-19/FLU A+B/RSV; Complete Time: 21:11 kb 02/05 20:05 Order name: Strep 02/05 20:38 Order name: Throat Culture EDME Administered Medications: No medications were administered Disposition Summary: 02/05/23 21:11 Discharge Ordered Notes: Location: Home kb Condition: Stable kb Diagnosis - Influenza due to identified novel influenza A virus kb Followup: kb - With: Emergency Department - When: As needed - Reason: Worsening of condition Followup: kb - With: Private Physician - When: 2 - 3 days - Reason: Recheck today's complaints, Continuance of care, Re-evaluation by your physician Discharge Instructions: - Discharge Summary Sheet kb - Influenza, Adult, [id number] kb Forms: - Medication Reconciliation Form kb - Thank You Letter kb - Antibiotic Education kb - Prescription Opioid Use kb - Patient Portal Instructions kb - Leadership Thank You Letter kb Addendum: 02/06/2023 22:26 Co-signature as Attending Physician, James Castro MD I reviewed the patient's care r t provided by the Advanced Practice Provider and agree with the diagnosis and treatment plan. Signatures: Dispatcher [employer] EDLori Martinez, DIGITAL MARKETING ASSISTANT-C DIGITAL MARKETING ASSISTANT-Ckb Phuong Tidwell, RN RN lg3 James Castro MD MD rt
--- NOTE | 2023-02-05 21:12 | ER ---
Nurse's Notes [facility] Name: Fili Padilla Age: 22 yrs Sex: Male : 2000 Arrival Date: 02/05/2023 Time: 19:56 Bed IW1 Private MD: Diagnosis: Influenza due to identified novel influenza A virus Presentation: 02/05 20:04 Chief complaint: Patient states: sore throat, cough, congestion, headache X4 days. lg3 Coronavirus screen: Client denies travel out of the [place] in the last 14 days. Client presents with at least one sign or symptom that may indicate coronavirus-19. Standard/surgical mask placed on the client. Ebola Screen: No symptoms or risks identified at this time. Initial Sepsis Screen: Does the patient meet any 2 criteria? No. Patient's initial sepsis screen is negative. Does the patient have a suspected source of infection? No. Patient's initial sepsis screen is negative. Risk Assessment: Do you want to hurt yourself or someone else? Patient reports no desire to harm self or others. Onset of symptoms is unknown. 20:04 Method Of Arrival: Ambulatory lg3 20:04 Acuity: SHRUTHI 4 lg3 Triage Assessment: 20:05 General: Appears in no apparent distress. comfortable, Behavior is calm, cooperative. lg3 Pain: Complains of pain in generalized body aches. EENT: Reports nasal congestion nasal discharge. Neuro: No deficits noted. Peter Agitation-Sedation Scale (RASS): 0 - Alert and Calm Level of Consciousness is awake, alert, obeys commands, Oriented to person, place, time, situation, Reports dizziness, headache weakness. Cardiovascular: No deficits noted. Denies chest pain, shortness of breath, Capillary refill < 3 seconds Clubbing of nail beds is absent JVD is absent Patient's skin is warm and dry. Respiratory: No deficits noted. Reports cough that is Airway is patent Respiratory effort is even, unlabored, Respiratory pattern is regular, symmetrical. GI: No deficits noted. No signs and/or symptoms were reported involving the gastrointestinal system. : No deficits noted. No signs and/or symptoms were reported regarding the genitourinary system. Derm: No deficits noted. No signs and/or symptoms reported regarding the dermatologic system. Skin is intact, is healthy with good turgor, Skin is dry, Skin is normal, Skin temperature is warm. Musculoskeletal: No deficits noted. Circulation, motion, and sensation intact. Range of motion: intact in all extremities. Historical: - Allergies: 20:05 No Known Allergies; lg3 - Home Meds: 20:05 None [Active]; lg3 - PMHx: 20:05 None; lg3 - PSHx: 20:05 None; lg3 - Immunization history:: Adult Immunizations up to date, Client reports having NOT received the Covid vaccine. - Social history:: Smoking status: Reported history of juuling and/or vaping. Patient uses alcohol, occasionally. street drugs, marijuana. Screenin:29 [facility] [place] ED Fall Risk Assessment (Adult) Score/Fall Risk Level 0 - 2 = Low Risk. Abuse as6 screen: Denies threats or abuse. Denies injuries from another. Nutritional screening: No deficits noted. Tuberculosis screening: No symptoms or risk factors identified. Vital Signs: 20:04 BP 125 / 86; Pulse 95; Resp 17 S; Temp 98.6(O); Pulse Ox 100% on R/A; Weight 52.16 kg lg3 (R); Height 5 ft. 4 in. (R); 20:04 Body Mass Index 19.74 (52.16 kg, 162.56 cm) 3 ED Course: 19:59 Patient arrived in ED. ag3 20:00 Lori Jo FNP-C [facility]. kb 20:00 James Castro MD is Attending Physician. kb 20:05 Triage completed. lg3 20:05 Arm band placed on right wrist. lg3 20:09 COVID-19/FLU A+B/RSV Sent. lg3 21:29 Bed in low position. Call light in reach. Provided Education on: follow up . as6 21:31 No provider procedures requiring assistance completed. Patient did not have IV access as6 during this emergency room visit. Administered Medications: No medications were administered Medication: 21:30 VIS not applicable for this client. as6 Outcome: 21:11 Discharge ordered by . kb 21:31 Discharged to home ambulatory, as6 21:31 Condition: stable 21:31 Discharge instructions given to patient, Instructed on discharge instructions, follow up and referral plans. Demonstrated understanding of instructions, follow-up care, 21:31 Patient left the ED. as6 Signatures: Lori Jo FNP-C ENGINE COWLING INSTALLER-Ckb Sruthi An ag3 Phuong Tidwell, RN RN lg3 Efe Brooke, RN RN as6
[2023-02-05 22:22] VITALS: BP 125/86; TEMP 98.6; O2SAT 100
== END 2023-02-05 21:31 | disposition home or self-care (01) ==
LOC: ER 19:56
DX: J10.1 Influenza due to other identified influenza virus with other respiratory manifestations (principal); Z11.52 Encounter for screening for COVID-19
CPT/HCPCS: 0241U; 87070; 87081; 99283

== ENCOUNTER 2024-06-05 19:06 | Emergency (ER) | payer SELFPAY ==
[2024-06-05] MEDS ORDERED: NA CHLORIDE 0.9% 1,000 ML ONE (19:51)
[2024-06-05] MEDS ORDERED: ONDANSETRON 4 MG/2 ML VIAL ONE (19:51)
[2024-06-05 20:29] LABS: Absolute Lymphocytes (CBC) 1.3 K/uL (0.7-4.9); Absolute Monocytes 0.7 K/uL (0.1-1.3); Absolute Neutrophil 3.9 K/uL (1.8-8.0); Basophils % 0.4 % (0-1.3); Eosinophils % 0.1 % (0-4.4); Hematocrit 39.4 % (39.6-49.0); Lymphocytes % 21.8 % (15.3-44.8); MCH 30.3 pg (27.0-35.0); MCHC 35.6 g/dL (32.0-36.0); MCV 85.1 fL (80-100); MPV 9.2 fL (7.6-11.3); Neutrophils % 65.7 % (41.7-73.7); Nucleated Red Blood Cells % 0.1 % (0-0); Platelets 180 thou/uL (152-406); RBC Red Blood Cell Count 4.63 M/uL (4.33-5.43); Red Cell Distribution Width 13.2 % (12.1-15.2)
[2024-06-05 20:41] LABS: Albumin 3.7 g/dL (3.4-5.0); Albumin/Globulin Ratio 1.1 (1.1-1.8); Anion Gap 15.5 mEq/L (5.0-15.0); Bilirubin Total 1.2 mg/dL (0.2-1.0); Globulin 3.3 g/dL (2.3-3.5); Potassium 3.5 mEq/L (3.5-5.1)
[2024-06-05 20:43] LABS: Influenza A Ag Negative; Influenza B Ag Negative; SARS-CoV-2 Antigen Rapid Res Negative (Negative)
[2024-06-05] MEDS ORDERED: ACETAMINOPHEN 500 MG TAB ONE (20:44)
--- NOTE | 2024-06-05 21:36 | ER ---
Nurse's Notes [facility] Name: Fili Padilla Age: 24 yrs Sex: Male : 2000 Arrival Date: 06/05/2024 Time: 19:06 Bed 12 Private MD: Diagnosis: Nausea with vomiting, unspecified;Diarrhea, unspecified Presentation: 06/05 19:42 Chief complaint: Patient states: C/O N/V/D/F FOR THE LAST 3 DAYS. Coronavirus screen: br2 Client denies travel out of the [place] in the last 14 days. Ebola Screen: Patient denies travel to an Ebola-affected area in the 21 days before illness onset. Initial Sepsis Screen: Does the patient meet any 2 criteria? No. Patient's initial sepsis screen is negative. Does the patient have a suspected source of infection? No. Patient's initial sepsis screen is negative. Risk Assessment: Do you want to hurt yourself or someone else? Patient reports no desire to harm self or others. Onset of symptoms was June 02, 2024. 19:42 Method Of Arrival: EMS: [facility] br2 19:42 Acuity: SHRUTHI 3 br2 Triage Assessment: 19:44 General: Appears in no apparent distress. comfortable, Behavior is calm, cooperative. br2 Pain: Denies pain. Respiratory: Airway is patent Respiratory effort is even, unlabored, Respiratory pattern is regular, symmetrical. GI: Reports diarrhea, nausea, vomiting, since FRIDAY. Historical: - Allergies: 19:44 No Known Allergies; br2 - PMHx: 19:44 None; br2 - Immunization history:: Adult Immunizations not up to date. - Infectious Disease History:: Denies. - Social history:: Smoking status: Patient/guardian denies using tobacco, Patient/guardian denies using alcohol, street drugs. - Family history:: not pertinent. Screenin:42 [facility] ED Fall Risk Assessment (Adult) History of falling in the last 3 months, br2 including since admission No falls in past 3 months (0 pts) Confusion or Disorientation No (0 pts) Intoxicated or Sedated No (0 pts) Impaired Gait No (0 pts) Mobility Assist Device Used No (0 pt) Altered Elimination No (0 pt) Score/Fall Risk Level 0 - 2 = Low Risk Oriented to surroundings. Abuse screen: Denies threats or abuse. Denies injuries from another. Nutritional screening: No deficits noted. Tuberculosis screening: No symptoms or risk factors identified. Assessment: 22:05 GI: Reports diarrhea, nausea, vomiting. br2 Vital Signs: 19:42 BP 125 / 73; Pulse 84; Resp 19; Temp 98.2(TE); Pulse Ox 96% on R/A; Weight 49.9 kg; br2 Height 5 ft. 4 in. ; Pain 0/10; 19:42 Body Mass Index 18.88 (49.90 kg, 162.56 cm) br2 19:42 Pain Scale: Adult br2 ED Course: 19:38 Patient arrived in ED. gm2 19:39 James Castro MD is Attending Physician. rt 19:42 Antonette Marquez RN is Primary Nurse. br2 19:42 Maintain EMS IV. Dressing intact. Site clean \T\ dry. Gauge \T\ site: 20G RIGHT AC. Flushed br 2 with 10 mL NS. 19:42 Patient has correct armband on for positive identification. Placed in gown. Bed in low br2 position. Call light in reach. Side rails up X 1. Provided Education on: PLAN OF CARE. 19:44 Triage completed. br2 20:13 Lipase Sent. br2 20:13 CMP Sent. br2 20:13 CBC with Diff Sent. br2 20:13 COVID-19 Ag + Flu A+B Ag Sent. br2 22:00 No provider procedures requiring assistance completed. IV discontinued, intact, br2 bleeding controlled, No redness/swelling at site. Pressure dressing applied. Administered Medications: 20:13 Drug: NS 0.9% IV 1000 ml IV at 1000 ml once; to be given as a bolus over 60 minutes br2 Route: IV; Rate: 1000 ml; Site: right antecubital; 21:30 Follow up: Response: No adverse reaction; IV Status: Completed infusion; IV Intake: br2 1000ml 20:13 Drug: Ondansetron IVP 4 mg IVP once; over 2 minutes Route: IVP; Site: right antecubital;br2 20:50 Drug: Acetaminophen PO 1000 mg PO once Route: PO; br2 21:15 Follow up: Response: No adverse reaction br2 Medication: 20:50 VIS not applicable for this client. br2 Intake: 21:30 IV: 1000ml; Total: 1000ml. br2 Outcome: 21:36 Discharge ordered by . rt 22:00 Discharged to home ambulatory, br2 22:00 Condition: good 22:00 Discharge instructions given to patient, Instructed on discharge instructions, follow up and referral plans. Demonstrated understanding of instructions, follow-up care, medications, Prescriptions given X 1, 22:26 Patient left the ED. br2 Signatures: James Castro MD MD rt Sigrid Cochran 2 Antonette Marquez RN RN br2 Corrections: (The following items were deleted from the chart) 22:12 22:05 VIS not applicable for this client. br2 br2
--- NOTE | 2024-06-05 21:36 | EDPHYS ---
Physician Documentation [facility] Name: Fili Padilla Age: 24 yrs Sex: Male : 2000 Arrival Date: 06/05/2024 Time: 19:06 Bed 12 Private MD: ED Physician James Castro HPI: 06/05 21:47 This 24 yrs old Male presents to ER via EMS with complaints of Nausea/Vomiting/Diarrhea.rt 21:47 Patient presents to the ED with nausea, vomiting, diarrhea for the past 3 days. Denies rt blood in the stool or vomit. Denies any abdominal pain. Reports chills, subjective fever. Denies other acute complaints at this time, symptoms are moderate in severity, no other aggravating alleviating factors.. Historical: - Allergies: 19:44 No Known Allergies; br2 - PMHx: 19:44 None; br2 - Immunization history:: Adult Immunizations not up to date. - Infectious Disease History:: Denies. - Social history:: Smoking status: Patient/guardian denies using tobacco, Patient/guardian denies using alcohol, street drugs. - Family history:: not pertinent. ROS: 21:47 Cardiovascular: Negative for chest pain, palpitations, and edema, Respiratory: Negative rt for shortness of breath, cough, wheezing, and pleuritic chest pain, MS/Extremity: Negative for injury and deformity, Skin: Negative for injury, rash, and discoloration, Neuro: Negative for headache, weakness, numbness, tingling, and seizure, 21:47 Constitutional: Positive for body aches, fever, 21:47 Abdomen/GI: Positive for nausea, vomiting, and diarrhea, Negative for abdominal pain, Exam: 21:47 Constitutional: This is a well developed, well nourished patient who is awake, alert, rt and in no acute distress. Head/Face: Normocephalic, atraumatic. Chest/axilla: Normal chest wall appearance and motion. Nontender with no deformity. No lesions are appreciated. Cardiovascular: Regular rate and rhythm with a normal S1 and S2. No gallops, murmurs, or rubs. Normal PMI, no JVD. No pulse deficits. Respiratory: Lungs have equal breath sounds bilaterally, clear to auscultation and percussion. No rales, rhonchi or wheezes noted. No increased work of breathing, no retractions or nasal flaring. Abdomen/GI: Soft, non-tender, with normal bowel sounds. No distension or tympany. No guarding or rebound. No evidence of tenderness throughout. Skin: Warm, dry with normal turgor. Normal color with no rashes, no lesions, and no evidence of cellulitis. MS/ Extremity: Pulses equal, no cyanosis. Neurovascular intact. Full, normal range of motion. Neuro: Awake and alert, GCS 15, oriented to person, place, time, and situation. Cranial nerves II-XII grossly intact. Motor strength 5/5 in all extremities. Sensory grossly intact. Cerebellar exam normal. Normal gait. Vital Signs: 19:42 BP 125 / 73; Pulse 84; Resp 19; Temp 98.2(TE); Pulse Ox 96% on R/A; Weight 49.9 kg; br2 Height 5 ft. 4 in. ; Pain 0/10; 19:42 Body Mass Index 18.88 (49.90 kg, 162.56 cm) br2 19:42 Pain Scale: Adult br2 MDM: 19:39 Medical Screening Exam initiated rt 21:49 Differential diagnosis: Gastroenteritis, flu, COVID, dehydration, ultralight rt disturbance. Data reviewed: vital signs, nurses notes, lab test result(s). I considered the following discharge prescriptions or medication management in the emergency department Medications were administered in the Emergency Department. See MAR. Test considered but Not performed: CT: Patient denies any abdominal pain, has no focal areas of abdominal tenderness, low suspicion for acute surgical pathology such as appendicitis, cholecystitis, do not believe that CT scan is indicated at this time, however, patient was instructed to return for worsening symptoms for further diagnostic studies. Counseling: I had a detailed discussion with the patient and/or guardian regarding the historical points, exam findings, and any diagnostic results supporting the discharge/admit diagnosis, lab results, the need for outpatient follow up, to return to the emergency department if symptoms worsen or persist or if there are any questions or concerns that arise at home. Response to treatment: the patient's symptoms have markedly improved after treatment. 06/05 19:45 Order name: COVID-19 Ag + Flu A+B Ag; Complete Time: 20:44 rt 06/05 19:45 Order name: CBC with Diff; Complete Time: 20:44 rt 03/08 19:45 Order name: CMP; Complete Time: 20:44 rt 06/05 19:45 Order name: Lipase; Complete Time: 20:44 rt Administered Medications: 20:13 Drug: NS 0.9% IV 1000 ml IV at 1000 ml once; to be given as a bolus over 60 minutes br2 Route: IV; Rate: 1000 ml; Site: right antecubital; 21:30 Follow up: Response: No adverse reaction; IV Status: Completed infusion; IV Intake: br2 1000ml 20:13 Drug: Ondansetron IVP 4 mg IVP once; over 2 minutes Route: IVP; Site: right antecubital;br2 20:50 Drug: Acetaminophen PO 1000 mg PO once Route: PO; br2 21:15 Follow up: Response: No adverse reaction br2 Disposition Summary: 06/05/24 21:36 Discharge Ordered Notes: Location: Home rt Problem: new rt Symptoms: have improved rt Condition: Stable rt Diagnosis - Nausea with vomiting, unspecified rt - Diarrhea, unspecified rt Followup: rt - With: Private Physician - When: 2 - 3 days - Reason: Discharge Instructions: - Discharge Summary Sheet rt - Diarrhea, Adult rt - Nausea and Vomiting, Adult rt Forms: - Medication Reconciliation Form rt - Antibiotic Education rt - Prescription Opioid Use rt - Patient Portal Instructions rt - Leadership Thank You Letter rt Prescriptions: - ondansetron 4 mg Oral Tablet,disintegrating - take 1 tablet ORAL route every 6 hours as needed for nausea; 18 tablet; rt Refills: 0, Product Selection Permitted Signatures: Dispatcher [employer] EDMS James Castro MD MD rt Antonette Marquez RN RN br2 Corrections: (The following items were deleted from the chart) 19:45 19:45 COVID-19 Ag + Flu A+B Ag+I.LAB.BRZ ordered. EDMS EDMS 19:45 19:45 CBC+H.LAB.BRZ ordered. EDMS EDMS 19:45 19:45 COMPREHENSIVE METABOLIC PANEL+C.LAB.BRZ ordered. EDMS EDMS 19:45 19:45 LIPASE+C.LAB.BRZ ordered. EDMS EDMS
[2024-06-05 22:31] VITALS: BP 125/73; TEMP 98.2; O2SAT 96
== END 2024-06-05 22:26 | disposition home or self-care (01) ==
LOC: ER 19:06
DX: R11.2 Nausea with vomiting, unspecified (principal); R19.7 Diarrhea, unspecified; Z11.52 Encounter for screening for COVID-19
CPT/HCPCS: 36415; 80053; 83690; 85025; 87428; 96361; 96374; 99284; J2405; J7030

== ENCOUNTER 2024-08-04 17:39 | Emergency (ER) | payer BC ==
--- NOTE | 2024-08-04 17:51 | ER ---
Nurse's Notes [facility] Name: Fili Padilla Age: 24 yrs Sex: Male : 2000 Arrival Date: 08/04/2024 Time: 17:39 Bed IW3 Private MD: Diagnosis: Unspecified sexually transmitted disease Presentation: 08/04 17:48 Chief complaint: Patient states: STATES HAS CHLAMYDIA HAS DISCHARGE AND BURNING WHEN db PEES. FEELS LIKE WHEN GOT IT BEFORE. Coronavirus screen: Client denies travel out of the [place] in the last 14 days. At this time, the client does not indicate any symptoms associated with coronavirus-19. Ebola Screen: Patient negative for fever greater than or equal to 101.5 degrees Fahrenheit, and additional compatible Ebola Virus Disease symptoms Patient denies exposure to infectious person. Patient denies travel to an Ebola-affected area in the 21 days before illness onset. No symptoms or risks identified at this time. Initial Sepsis Screen: Does the patient meet any 2 criteria? No. Patient's initial sepsis screen is negative. Does the patient have a suspected source of infection? No. Patient's initial sepsis screen is negative. Risk Assessment: Do you want to hurt yourself or someone else? Patient reports no desire to harm self or others. Onset of symptoms was August 04, 2024. 17:48 Method Of Arrival: Ambulatory db 17:48 Acuity: SHRUTHI 4 db Triage Assessment: 17:49 General: Appears in no apparent distress. comfortable, Behavior is calm, cooperative. db Pain: Denies pain. Neuro: Level of Consciousness is awake, alert, obeys commands, Oriented to person, place, time, situation. : Reports burning with urination, DISCHARGE. Historical: - Allergies: 17:49 No Known Allergies; db - PMHx: 17:49 None; db - Immunization history:: Adult Immunizations unknown. - Infectious Disease History:: Denies. - Social history:: Smoking status: Reported history of juuling and/or vaping. Screenin:05 [facility] ED Fall Risk Assessment (Adult) History of falling in the last 3 months, db including since admission No falls in past 3 months (0 pts) Confusion or Disorientation No (0 pts) Intoxicated or Sedated No (0 pts) Impaired Gait No (0 pts) Mobility Assist Device Used No (0 pt) Altered Elimination No (0 pt) Score/Fall Risk Level 0 - 2 = Low Risk Oriented to surroundings, Maintained a safe environment. Abuse screen: Denies threats or abuse. Denies injuries from another. Nutritional screening: No deficits noted. Tuberculosis screening: No symptoms or risk factors identified. Assessment: 18:05 Reassessment: Patient appears in no apparent distress at this time. Patient and/or db family updated on plan of care and expected duration. Pain level reassessed. Patient is alert, oriented x 3, equal unlabored respirations, skin warm/dry/pink. Vital Signs: 17:48 BP 128 / 80; Pulse 87; Resp 16; Temp 98.4(O); Pulse Ox 98% ; Weight 52.16 kg; Height 5 db ft. 4 in. ; 17:48 Body Mass Index 19.74 (52.16 kg, 162.56 cm) db ED Course: 17:40 Patient arrived in ED. mr 17:41 Lori Jo FNP-C is [facility]. kb 17:41 Griffin Thomas MD is Attending Physician. kb 17:49 Triage completed. db 17:49 Arm band placed on Patient placed in waiting room. db 18:05 Allergy band placed. Provided Education on: DISCHARGE. db 18:05 No provider procedures requiring assistance completed. Patient did not have IV access db during this emergency room visit. Administered Medications: 18:03 Drug: Rocephin (cefTRIAXone) IM 500 mg IM once Route: IM; Site: right ventrogluteal; db 18:05 Follow up: Response: No adverse reaction db 18:03 Drug: AZITHromycin PO 1 grams PO once Route: PO; db 18:05 Follow up: Response: No adverse reaction db Medication: 18:05 VIS not applicable for this client. db Outcome: 17:51 Discharge ordered by . kb 18:05 Discharged to home ambulatory, with family, db 18:05 Condition: stable 18:05 Discharge instructions given to patient, family, Instructed on discharge instructions, follow up and referral plans. 18:06 Patient left the ED. db Signatures: Lori Jo FNP-C FNP-Luda Tobias, Reg Reg Adrianne Maravilla, RN RN db
--- NOTE | 2024-08-04 17:51 | EDPHYS ---
Physician Documentation [facility] Name: Fili Padilla Age: 24 yrs Sex: Male : 2000 Arrival Date: 08/04/2024 Time: 17:39 Bed IW3 Private MD: ED Physician Griffin Thomas HPI: 08/04 18:40 This 24 yrs old Male presents to ER via Ambulatory with complaints of STD Exposure. kb 18:40 Patient is a 24-year-old male who presents for penile discharge and dysuria that kb started 6 months ago. States " I have chlamydia. I have had it before and this is the same." Patient states penile discharge is white in color. Denies any pain or fever. States he tested positive for chlamydia in the past and told his significant other she needed to be treated but she did not get treated so he got it again from her. States he waited to come in until today because he did not have time due to work previously.. Historical: - Allergies: 17:49 No Known Allergies; db - PMHx: 17:49 None; db - Immunization history:: Adult Immunizations unknown. - Infectious Disease History:: Denies. - Social history:: Smoking status: Reported history of juuling and/or vaping. ROS: 18:40 Constitutional: As per HPI kb Exam: 18:40 Constitutional: This is a well developed, well nourished patient who is awake, alert, kb and in no acute distress. Head/Face: Normocephalic, atraumatic. ENT: Moist Mucous membranes Cardiovascular: Regular rate Respiratory: Respirations even and unlabored. No increased work of breathing. Talking in full sentences Abdomen/GI: Soft, non-tender. No distention Skin: Warm, dry with normal turgor. Normal color. MS/ Extremity: Pulses equal, no cyanosis. Neurovascular intact. Full, normal range of motion. Neuro: Awake and alert, GCS 15, oriented to person, place, time, and situation. Vital Signs: 17:48 BP 128 / 80; Pulse 87; Resp 16; Temp 98.4(O); Pulse Ox 98% ; Weight 52.16 kg; Height 5 db ft. 4 in. ; 17:48 Body Mass Index 19.74 (52.16 kg, 162.56 cm) db MDM: 17:41 Medical Screening Exam initiated kb 18:41 Differential diagnosis: STI, UTI. Data reviewed: vital signs, nurses notes. Test kb considered but Not performed: Labs: GC swab considered but would not change course of treatment. Counseling: I had a detailed discussion with the patient and/or guardian regarding the historical points, exam findings, and any diagnostic results supporting the discharge/admit diagnosis, the need for outpatient follow up, a family practitioner, to return to the emergency department if symptoms worsen or persist or if there are any questions or concerns that arise at home. Administered Medications: 18:03 Drug: Rocephin (cefTRIAXone) IM 500 mg IM once Route: IM; Site: right ventrogluteal; db 18:05 Follow up: Response: No adverse reaction db 18:03 Drug: AZITHromycin PO 1 grams PO once Route: PO; db 18:05 Follow up: Response: No adverse reaction db Disposition: 23:35 Co-signature as Attending Physician, Griffin Thomas MD I agree with the assessment and virgilio plan of care. Disposition Summary: 08/04/24 17:51 Discharge Ordered Notes: Location: Home kb Condition: Stable kb Diagnosis - Unspecified sexually transmitted disease kb Followup: kb - With: Emergency Department - When: As needed - Reason: Worsening of condition Followup: kb - With: Private Physician - When: 2 - 3 days - Reason: Recheck today's complaints, Continuance of care, Re-evaluation by your physician Discharge Instructions: - Discharge Summary Sheet kb - Chlamydia, Male kb - Preventing Sexually Transmitted Infections, Adult kb Forms: - Medication Reconciliation Form kb - Antibiotic Education kb - Prescription Opioid Use kb - Patient Portal Instructions kb - Leadership Thank You Letter kb - Work release form hb Signatures: Lori Jo, ACE CALERO-Griffin Ortega MD MD cha Benton, Danielle, RN RN db
[2024-08-04] MEDS ORDERED: CEFTRIAXONE 500 MG/VIAL ONE (17:57)
[2024-08-04] MEDS ORDERED: LIDOCAINE 1% MPF 2 ML AMPULE ONE (17:57)
[2024-08-04] MEDS ORDERED: AZITHROMYCIN 250 MG TAB ONE (17:57)
[2024-08-04 19:55] VITALS: BP 128/80; TEMP 98.4; O2SAT 98
== END 2024-08-04 18:06 | disposition home or self-care (01) ==
LOC: ER 17:39
DX: A64 Unspecified sexually transmitted disease (principal)
CPT/HCPCS: 96372; 99284